=== PATIENT | male | born 1955 | race Caucasian/White ===

== ENCOUNTER 2021-04-26 14:50 | Outpatient (CLI) | payer MEDICARE ==
[~2021-04-26] VITALS: Ht 182.9 cm; Wt 115.7 kg
[2021-04-26] MEDS ORDERED: FLUT16SP2 BOTHNARES (15:58)
[2021-04-26] MEDS ORDERED: IBUP-1986 PO (15:58)
[2021-04-26 16:15] LABS: BASOPHILS % (AUTO) 0.5 % (0-1); EOSINOPHILS # (AUTO) 0.3 X10'3 (0-0.9); EOSINOPHILS % (AUTO) 3.7 % (0-6); LYMPHOCYTES # (AUTO) 1.4 X10'3 (1.1-4.8); LYMPHOCYTES % (AUTO) 19.3 % (21-51); MEAN CORPUSCULAR HEMOGLOBIN 32.6 PG (27.0-31.0); MEAN CORPUSCULAR HGB CONC 34.3 g/dL (33.0-36.5); MEAN PLATELET VOLUME 7.7 FL (7.4-10.4); MONOCYTES # (AUTO) 0.8 X10'3 (0-0.9); MONOCYTES % (AUTO) 11.3 % (2-12); NEUTROPHILS # (AUTO) 4.6 X10'3 (1.8-7.7); NEUTROPHILS % (AUTO) 65.2 % (42-75); PRE OP HEMATOCRIT 46.3 % (42.0-52.0); PRE OP HEMOGLOBIN 15.9 g/dL (14.0-17.9); PRE OP PLATELET COUNT 215 X10'3 (140-440); RED BLOOD COUNT 4.87 X10'6 (4.70-6.10); RED CELL DISTRIBUTION WIDTH 12.4 % (11.5-14.5)
[2021-04-26 16:19] LABS: ALBUMIN 4.3 G/DL (3.4-5.0); ALBUMIN/GLOBULIN RATIO 1.3 (1.1-1.5); ALKALINE PHOSPHATASE 104 IU/L (46-116); BLOOD UREA NITROGEN 22 MG/DL (7-18); BUN/CREATININE RATIO 20.8 (5.4-32.0); CALCIUM 8.8 MG/DL (8.5-10.1); CHLORIDE 106 MMOL/L (99-107); CREATININE 1.06 MG/DL (0.60-1.10); PRE OP ALT 62 U/L (30-65); PRE OP ANION GAP 10 (8-16); PRE OP AST 27 U/L (10-37); PRE OP BILIRUB, TOTAL 0.3 MG/DL (0.0-1.0); PRE OP GLUCOSE 88 MG/DL (70-104); PRE OP POTASSIUM 4.2 MMOL/L (3.4-5.1); PRE OP SODIUM 144 MMOL/L (135-145); TOTAL CARBON DIOXIDE 27.9 MMOL/L (24-32); TOTAL PROTEIN 7.7 G/DL (6.4-8.2); eGFR 70 ML/MIN
[2021-05-03] MEDS ORDERED: ringers solution, lacted 1,000 ML IV SCH (05:00)
[2021-05-03] MEDS ORDERED: tranexamic acid 650mg tablet PO ONE (05:30)
[2021-05-03] MEDS ORDERED: cefazolin/dext.iso 2gm/100ml IV ONE (05:30)
[2021-05-03] MEDS ORDERED: famotidine 20mg tablet PO ONE (05:30)
[2021-05-03] MEDS ORDERED: vancomycin 1,500 MG in NS 300ml IV soln IV ONE (05:30)
== END 2021-04-26 23:59 | disposition home or self-care (01) ==
LOC: PRE-OP 14:50 → EDSTATUS 05-03 09:15
PROVIDERS: ATTEND Orthopaedic Surgery
DX: Z01.812 Encounter for preprocedural laboratory examination (principal); M25.511 Pain in right shoulder; M19.011 Primary osteoarthritis, right shoulder; Z20.822 Contact with and (suspected) exposure to COVID-19
CPT/HCPCS: 36415; 80053; 85025; 87081; U0003; U0005; J3370; J7040; J7120

== ENCOUNTER 2021-07-26 05:36 | Inpatient (IN) | payer MEDICARE ==
[2021-07-19 13:59] LABS: BASOPHILS % (AUTO) 0.8 % (0-1); EOSINOPHILS # (AUTO) 0.2 X10'3 (0-0.9); EOSINOPHILS % (AUTO) 4.6 % (0-6); LYMPHOCYTES % (AUTO) 21.6 % (21-51); MEAN CORPUSCULAR HEMOGLOBIN 32.5 PG (27.0-31.0); MEAN CORPUSCULAR HGB CONC 34.4 g/dL (33.0-36.5); MEAN CORPUSCULAR VOLUME 94.5 FL (78-98); MEAN PLATELET VOLUME 7.9 FL (7.4-10.4); MONOCYTES # (AUTO) 0.5 X10'3 (0-0.9); MONOCYTES % (AUTO) 11.4 % (2-12); NEUTROPHILS # (AUTO) 2.9 X10'3 (1.8-7.7); NEUTROPHILS % (AUTO) 61.6 % (42-75); PRE OP HEMATOCRIT 42.6 % (42.0-52.0); PRE OP HEMOGLOBIN 14.7 g/dL (14.0-17.9); PRE OP PLATELET COUNT 199 X10'3 (140-440); RED BLOOD COUNT 4.51 X10'6 (4.70-6.10); RED CELL DISTRIBUTION WIDTH 13.1 % (11.5-14.5)
[2021-07-19 14:39] LABS: ALBUMIN 4.1 G/DL (3.4-5.0); ALBUMIN/GLOBULIN RATIO 1.2 (1.1-1.5); ALKALINE PHOSPHATASE 82 IU/L (46-116); BLOOD UREA NITROGEN 16 MG/DL (7-18); CHLORIDE 105 MMOL/L (99-107); PRE OP ALT 48 U/L (30-65); PRE OP ANION GAP 5 (8-16); PRE OP AST 19 U/L (10-37); PRE OP BILIRUB, TOTAL 0.3 MG/DL (0.0-1.0); PRE OP GLUCOSE 88 MG/DL (70-104); PRE OP POTASSIUM 4.1 MMOL/L (3.4-5.1); PRE OP SODIUM 141 MMOL/L (135-145); TOTAL CARBON DIOXIDE 31.1 MMOL/L (24-32); TOTAL PROTEIN 7.4 G/DL (6.4-8.2); eGFR 75 ML/MIN
[2021-07-26] VITALS (14 sets, daily range): BP systolic 124–153; BP diastolic 70–96
[~2021-07-26] VITALS: Ht 182.9 cm; Wt 116.1 kg
[~2021-07-26 05:36] MED LIST: IBUP-1986 PO; cefazolin/dext.iso 2gm/50ml IV ONE; famotidine 20mg tablet PO ONE; ringers solution, lacted 1,000 ML IV SCH; tranexamic acid 650mg tablet PO ONE; vancomycin 1,500 MG in NS 300ml IV soln IV ONE
[2021-07-26] MEDS ORDERED: FLUT16SP2 BOTHNARES (06:17)
[2021-07-26] MEDS ORDERED: ROPIVAcaine 0.5% (5mg/ml) 30ml vial ONE ×2 (06:54→08:37)
[2021-07-26] MEDS ORDERED: ketorolac trometh. 30mg/ml inj. ONE (06:54)
[2021-07-26] MEDS ORDERED: sevoflurane 250ml liquid IH ONE (08:00)
[2021-07-26] MEDS ORDERED: midazolam 1 mg/ML 2ml injection ONE ×2 (08:31)
[2021-07-26] MEDS ORDERED: fentaNYL/PF 50MCG/1 ML 2ML syringe ONE (08:31)
[2021-07-26] MEDS ORDERED: dexamethasone sod phosphate 4mg/ml inj. ONE (08:37)
[2021-07-26] MEDS ORDERED: LIDOcaine 1%/PF 5ML 10 MG/ML VIAL ONE (08:37)
[2021-07-26] MEDS ORDERED: propofol inj 20 ML IV ONE (08:37)
[2021-07-26] MEDS ORDERED: ondansetron/PF 4mg/2ml inj IV PRN ×2 (10:35→11:35)
[2021-07-26] MEDS ORDERED: ROPIVAcaine 0.2% (10 MG/5 ML) BOLUS INJECTION INTERSCALE PRN (10:35)
[2021-07-26] MEDS ORDERED: ringers solution, lacted 1,000 ML IV SCH (10:35)
[2021-07-26] MEDS ORDERED: morphine 4 MG/ML inj SYRINge IV PRN (10:35)
[2021-07-26] MEDS ORDERED: meperidine/PF 25mg/ml syringe IV PRN ×3 (10:35)
[2021-07-26] MEDS ORDERED: morphine 2 MG/ML inj. syringe IV PRN (10:35)
[2021-07-26] MEDS ORDERED: ROPIVAcaine 0.2%/PF PUMP/bolus 545 ML INTERSCALE SCH (10:35)
[2021-07-26] MEDS ORDERED: proCHLORperazine 10 MG/2 ml inj IV PRN (10:35)
[2021-07-26] MEDS ORDERED: ondansetron/PF 4mg/2ml inj ONE (10:50)
[2021-07-26] MEDS ORDERED: ePHEDrine 50MG/ML INJ. ONE (10:50)
[2021-07-26] MEDS ORDERED: glycopyrrolate 0.2mg/ml inj ONE (10:50)
--- NOTE | 2021-07-26 11:22 | NUR ---
Received from OR via BED, accompanied by Anesthesiologist DR BERNARDO and report given by Anesthesiologist AND B[employer] MAKER GIFT WRAPPING. PT DROWSY, DENIES PAIN. RIGHT SHOULDER W/DRSG, SHOULDER WRAP, ICE PACK, SLING. 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 Addendum: 07/26/21 at 1253 by Margo Cooley RN Amended: Links added.
[2021-07-26] MEDS ORDERED: HYDROmorphone 1 mg/ml syringe IV PRN (11:35)
[2021-07-26] MEDS ORDERED: oxyCODONE IR 5mg (immed. release) tablet PO PRN (11:35)
[2021-07-26] MEDS ORDERED: magnesium hydroxide 30ml (MOM) UD suspension PO PRN (11:35)
[2021-07-26] MEDS ORDERED: acetaminophen 325mg tablet PO PRN (11:35)
[2021-07-26] MEDS ORDERED: diphenhydrAMINE 25mg capsule PO PRN ×2 (11:35)
[2021-07-26] MEDS ORDERED: bisacodyl 10mg suppository rectal RC PRN (11:35)
[2021-07-26] MEDS ORDERED: HYDROmorphone inj. 0.5 MG/0.5 ML DISP.SYRIN IV PRN (11:35)
--- NOTE | 2021-07-26 13:12 | NUR ---
Report called to receiving nurse. Transferred via BED W/GLASSES AND 2 BAGS OF Belongings TO ROOM 344A, RN AT BEDSIDE TO RECEIVE PT, BLL, CALL LIGHT GIVEN, SIDE RAILS UP X 2, AT BEDSIDE. Special Issues communicated to receiving nurse. YES. Addendum: 07/26/21 at 1335 by Margo Cooley RN Amended: Links added.
[2021-07-26] MEDS: acetaminophen 325mg tablet PO SCH ×2 (16:02→19:45)
[2021-07-26] MEDS: ceFAZolin/D5W- 1GM premix 50 ML IV SCH ×2 (16:03→23:34)
--- NOTE | 2021-07-26 18:28 | NUR ---
Problems reprioritized. Patient report given, questions answered & plan of care reviewed with Nikunj ARRIETA.
[2021-07-26] MEDS: oxyCODONE IR 5mg (immed. release) tablet PO PRN (19:46)
[2021-07-26] MEDS ORDERED: vancomycin/NS 1 GM ADD-VANTAGE 250 ML IV SCH (20:00)
[2021-07-26] MEDS ORDERED: sennosides 8.6mg tablet PO SCH (21:00)
[2021-07-26] MEDS: potassium cl 20mEq in 1/2 NS 1,000 ML IV SCH ×2 (23:34→23:36)
[2021-07-27] MEDS: acetaminophen 325mg tablet PO SCH ×2 (02:10→08:01)
--- NOTE | 2021-07-27 06:40 | NUR ---
Problems reprioritized. Patient report given, questions answered & plan of care reviewed with MIGUEL. Addendum: 07/27/21 at 0640 by Jef Mak RN Amended: Links added.
[2021-07-27 07:13] LABS: BASOPHILS % (AUTO) 0.1 % (0-1); EOSINOPHILS % (AUTO) 0.1 % (0-6); HEMATOCRIT 36.9 % (42.0-52.0); HEMOGLOBIN 12.7 g/dl (14.0-17.9); LYMPHOCYTES # (AUTO) 0.8 X10'3 (1.1-4.8); LYMPHOCYTES % (AUTO) 6.8 % (21-51); MEAN CORPUSCULAR HEMOGLOBIN 32.3 PG (27.0-31.0); MEAN CORPUSCULAR HGB CONC 34.4 g/dL (33.0-36.5); MEAN CORPUSCULAR VOLUME 93.8 FL (78-98); MEAN PLATELET VOLUME 8.3 FL (7.4-10.4); MONOCYTES # (AUTO) 0.9 X10'3 (0-0.9); MONOCYTES % (AUTO) 8.2 % (2-12); NEUTROPHILS # (AUTO) 9.5 X10'3 (1.8-7.7); NEUTROPHILS % (AUTO) 84.8 % (42-75); PLATELET COUNT 194 X10'3 (140-440); RED BLOOD COUNT 3.93 X10'6 (4.70-6.10); RED CELL DISTRIBUTION WIDTH 13.1 % (11.5-14.5); WHITE BLOOD COUNT 11.2 X10'3 (4.5-11.0)
[2021-07-27 07:31] LABS: ANION GAP 7 (8-16); CHLORIDE 106 MMOL/L (99-107); POTASSIUM 4.5 MMOL/L (3.5-5.1); SODIUM 140 MMOL/L (135-145); TOTAL CARBON DIOXIDE 27.1 MMOL/L (24-32)
[2021-07-27 08:00] VITALS: BP 155/84
[2021-07-27] MEDS ORDERED: fluticasone nasal spray 16GM bottle NS SCH (08:00)
[2021-07-27] MEDS ORDERED: non-formulary drug (Ibuprofen 1 TAB) PO SCH (08:00)
[2021-07-27] MEDS ORDERED: aspirin 325mg tablet PO SCH (08:30)
[2021-07-27] MEDS: oxyCODONE IR 5mg (immed. release) tablet PO PRN (09:41)
[2021-07-27 11:00] VITALS: BP 133/78
[2021-07-27] MEDS ORDERED: CYCL-1 PO (11:28)
--- NOTE | 2021-07-27 13:30 | NUR ---
d/c pending onQ [facility]. pharmacy aware
[2021-07-27] MEDS ORDERED: celeCOXIB 100mg capsule PO SCH (20:00)
[2021-07-28] MEDS ORDERED: acetaminophen 325mg tablet PO PRN (11:35)
== END 2021-07-27 14:10 | disposition home health service (06) | DRG 483 ==
LOC: PAS IN 05:36 → SUR 3N 13:29
PROVIDERS: ADMIT Orthopaedic Surgery; ATTEND Orthopaedic Surgery
PROC: 0LS30ZZ Reposition Right Upper Arm Tendon, Open Approach (ICD-10-PCS; 2021-07-26)
PROC: 3E0T3BZ Introduction of Anesthetic Agent into Peripheral Nerves and Plexi, Percutaneous Approach (ICD-10-PCS; 2021-07-26)
PROC: 0RRJ00Z Replacement of Right Shoulder Joint with Reverse Ball and Socket Synthetic Substitute, Open Approach (ICD-10-PCS; principal; 2021-07-26 08:57)
DX: M19.011 Primary osteoarthritis, right shoulder (principal); D62 Acute posthemorrhagic anemia; M75.101 Unspecified rotator cuff tear or rupture of right shoulder, not specified as traumatic; M65.811 Other synovitis and tenosynovitis, right shoulder; Z79.899 Other long term (current) drug therapy
CPT/HCPCS: 36415; 80051; 80053; 82948; 85025; 87081; 93005; 97110; 97161; 97530; A4618; A7000; C1776; G0378; J0690; J1100; J1885; J2250; J2405; J2704; J2795; J3010; J3370; J3480; J3490; J7040; J7120; U0003; U0005